=== PATIENT | male | born 1995 | race Caucasian/White ===

== ENCOUNTER 2019-01-04 14:16 | Day surgery (SDC) | payer BC ==
--- NOTE | 2019-01-04 13:39 | PCM.PREANE ---
PreAnesthesia Questionnaire - CURRENT (IN HOUSE) MEDS Current Meds: Current Medications Discontinued Medications Fentanyl (Sublimaze) Confirm Administered Dose 100 mcg .ROUTE .STK-MED ONE Stop: 01/04/19 13:19 Midazolam HCl (Versed 1 Mg/Ml) Confirm Administered Dose 2 mg .ROUTE .STK-MED ONE Stop: 01/04/19 13:19 Propofol (Diprivan 20 Ml) Confirm Administered Dose 200 mg .ROUTE .STK-MED ONE Stop: 01/04/19 13:18 Rocuronium Halsey (Zemuron) Confirm Administered Dose 50 mg .ROUTE .STK-MED ONE Stop: 01/04/19 13:19 Succinylcholine Chloride (Succinylcholine In Ns Pf) Confirm Administered Dose 100 mg .ROUTE .STK-MED ONE Stop: 01/04/19 13:23
[~2019-01-04 14:16] MED LIST: Dexamethasone 4 MG/ML 5 ML MDV ONE; Ketorolac 30 MG/ML SDV ONE; Lactated Ringers 1,000 ML IV SCH; Lidocaine 1%/Sod Bicarbonate in NS 8.4% 1 ML Syringe IDERM PRN; Midazolam 1 MG/ML 2 ML SDV ONE; Propofol 200 MG/20 ML SDV ONE; Rocuronium 50 MG/5 ML Vial ONE; Sodium Chloride 0.9% 10 ML Syringe FLUSH PRN; Succinylcholine/Normal Saline 100 MG/5 ML Syringe ONE; cefOXitin 2 GM in Premix Bag 1 BAG IV SCH; fentaNYL 100 MCG/2 ML SDV ONE
--- NOTE | 2019-01-04 14:39 | PCM.PREANE ---
Preanesthetic Assessment - Anesthesia/Transfusion/Family Hx Anesthesia History: No Prior Anesthesia Type of Anesthesia Reaction: Unknown Family History of Anesthesia Reaction: No Transfusion History: No Prior Transfusion(s) Intubation History: Unknown - Review of Systems General: No Symptoms Pulmonary: No Symptoms Cardiovascular: No Symptoms Gastrointestinal: Abdominal Pain Neurological: No Symptoms Other: Reports: None - Physical Assessment NPO Status Date: 01/04/19 (clay & shay) NPO Status Time: 09:00 Pulse: 88 O2 Sat by Pulse Oximetry: 98 Respiratory Rate: 16 Blood Pressure: 136/77 Temperature: 98.6 C ASA Class: 2E Mental Status: Alert & Oriented x3 Airway Class: Mallampati = 3 Dentition: Reports: Normal Dentition Cardiovascular: Regular Rate - Allergies Allergies/Adverse Reactions: Allergies Allergy/AdvReac Type Severity Reaction Status Date / Time No Known Allergies Allergy Verified 01/04/19 13:54 - Anesthesia Plan Pre-Op Medication Ordered: None - Acknowledgements Anesthesia Type Planned: General Anesthesia Pt an Appropriate Candidate for the Planned Anesthesia: Yes Alternatives and Risks of Anesthesia Discussed w Pt/Guardian: Yes Pt/Guardian Understands and Agrees with Anesthesia Plan: Yes PreAnesthesia Questionnaire - CURRENT (IN HOUSE) MEDS Current Meds: Current Medications Cefoxitin Sodium 2 gm/ Premix 50 mls @ 100 mls/hr IV ONETIME [facility] Lactated Ringer's (Ringers, Lactated) 1,000 mls @ 125 mls/hr IV ASDIRECTED [facility]RIT Lidocaine/Sodium Bicarbonate (Buffered Lidocaine 1% In Ns 8.4%) 0.25 ml IDERM ONETIME PRN PRN Reason: Prior to IV Start Sodium Chloride (Saline Flush) 10 ml FLUSH ASDIRECTED PRN PRN Reason: Keep Vein Open Discontinued Medications Dexamethasone (Dexamethasone) Confirm Administered Dose 20 mg .ROUTE .STK-MED ONE Stop: 01/04/19 13:38 Fentanyl (Sublimaze) Confirm Administered Dose 100 mcg .ROUTE .STK-MED ONE Stop: 01/04/19 13:19 Ketorolac Tromethamine (Toradol) Confirm Administered Dose 30 mg .ROUTE .STK- MED ONE Stop: 01/04/19 13:38 Midazolam HCl (Versed 1 Mg/Ml) Confirm Administered Dose 2 mg .ROUTE .STK-MED ONE Stop: 01/04/19 13:19 Propofol (Diprivan 20 Ml) Confirm Administered Dose 200 mg .ROUTE .STK-MED ONE Stop: 01/04/19 13:18 Rocuronium Logan (Zemuron) Confirm Administered Dose 50 mg .ROUTE .STK-MED ONE Stop: 01/04/19 13:19 Succinylcholine Chloride (Succinylcholine In Ns Pf) Confirm Administered Dose 100 mg .ROUTE .STK-MED ONE Stop: 01/04/19 13:23
[2019-01-04] MEDS ORDERED: fentaNYL 100 MCG/2 ML SDV ONE (14:57)
[2019-01-04] MEDS ORDERED: Neostigmine Methylsulfate 1 MG/ML 5 ML Syringe ONE (15:15)
[2019-01-04] MEDS ORDERED: Ondansetron 4 MG/2 ML SDV ONE (15:16)
[2019-01-04] MEDS ORDERED: Lactated Ringers 1,000 ML ONE (15:21)
[2019-01-04] MEDS ORDERED: Lidocaine 1% with EPINEPHrine 1:100,000 20 ML MDV ONE (15:27)
[2019-01-04] MEDS ORDERED: fentaNYL 100 MCG/2 ML SDV IVPUSH PRN (15:51)
[2019-01-04] MEDS ORDERED: Ondansetron 4 MG/2 ML SDV IVPUSH PRN (15:51)
[2019-01-04] MEDS ORDERED: HYDROmorphone 0.5 MG/0.5 ML Syringe IVPUSH PRN (15:51)
--- NOTE | 2019-01-04 15:51 | PCM.POSTAN ---
POST ANESTHESIA ASSESSMENT - VITAL SIGNS Pulse Rate: 87 SaO2: 99 Resp Rate: 16 Blood Pressure: 154/87 Temperature: 98.7 C - RESPIRATORY Respiratory Status: Respiratory Rate WNL, Airway Patent, O2 Saturation Stable, Supplemental Oxygen - CARDIOVASCULAR CV Status: Pulse Rate WNL, Blood Pressure Stable - GASTROINTESTINAL GI Status: No Symptoms - POST OP HYDRATION Hydration Status: Adequate & Stable
--- NOTE | 2019-01-04 15:59 | OR ---
DATE OF OPERATION: 01/04/2019 SURGEON: Jose Maria Bright MD PREOPERATIVE DIAGNOSIS: Acute appendicitis. POSTOPERATIVE DIAGNOSIS: Acute appendicitis. OPERATION PERFORMED: Laparoscopic appendectomy. ANESTHESIA: General. ESTIMATED BLOOD LOSS: Minimal. SPECIMEN: Appendix. OPERATIVE FINDINGS: Normal appendix. No other intraabdominal abnormalities noted. INDICATION FOR PROCEDURE: This 23-year-old male has abdominal pain; however, it is mostly located on the left side of the periumbilical area. He has a normal white blood cell count, however has a CT scan that shows a dilated appendix at 9 mm consistent with appendicitis. No other intraabdominal abnormalities were noted on scan. DESCRIPTION OF PROCEDURE: After adequate preparation, an infraumbilical incision was made and a Veress needle placed intra-abdominally. The abdomen was insufflated and then a laparoscope inserted. Two other midline trocars were placed under direct vision. Examination of the abdomen showed this to be virgin. There were no intraabdominal adhesions. No evidence of infection. The appendix was isolated next to the cecum and appeared to be normal. The only abnormality was it had an excessive length to it. Exploration of the abdomen, otherwise, was negative. He had no bowel thickening. No evidence of colon diverticula, Crohn disease, or hernias. A cautery was used to transect the mesoappendix and cauterize the appendiceal vessel. A large clip school bus attendant was used to clip across the base of the appendix and then this was amputated with scissors. The appendix was placed in a sterile retrieval bag and brought out through the suprapubic trocar site. The abdomen was desufflated and the skin closed with Monocryl. MMODAL /[id number]
[2019-01-04] MEDS ORDERED: Lactated Ringers 1,000 ML IV SCH (16:00)
--- NOTE | 2019-01-04 16:14 | PCM48HPAN ---
Post Anesthesia Note - EVALUATION WITHIN 48HRS OF ANESTHETIC Vital Signs in Normal Range: Yes Patient Participated in Evaluation: Yes Respiratory Function Stable: Yes Airway Patent: Yes Cardiovascular Function Stable: Yes Hydration Status Stable: Yes Pain Control Satisfactory: Yes Nausea and Vomiting Control Satisfactory: Yes Mental Status Recovered: Yes (feels better) Pulse Rate: 87 Resp Rate: 16 Temperature: 209.7 F Blood Pressure: 154/87
== END 2019-01-04 18:03 | disposition home or self-care (01) ==
LOC: JD.SDS 14:16
PROVIDERS: ATTEND Surgery
DX: K35.80 Unspecified acute appendicitis (principal); Z87.891 Personal history of nicotine dependence
CPT/HCPCS: 44970; J0330; J0694; J1100; J1885; J2250; J2405; J2704; J2710; J3010; J7120; 00840

== ENCOUNTER 2024-04-30 21:07 | Emergency (ER) | payer OTHER ==
[2024-04-30] MEDS ORDERED: Sodium Chloride 0.9% 10 ML Syringe FLUSH PRN (21:42)
[2024-04-30] MEDS: Acetaminophen/HYDROcodone 325-5 MG Tab PO ONE (22:47)
== END 2024-04-30 23:36 | disposition home or self-care (01) ==
LOC: JD.ED 21:07
DX: S42.002A Fracture of unspecified part of left clavicle, initial encounter for closed fracture (principal); V29.99XA Rider (driver) (passenger) of other motorcycle injured in unspecified traffic accident, initial encounter
CPT/HCPCS: 73030; 99283; A9270

== ENCOUNTER 2024-05-05 06:20 | Day surgery (SDC) | payer OTHER ==
[~2024-05-05 06:20] MED LIST changes: -Dexamethasone 4 MG/ML 5 ML MDV ONE; -Ketorolac 30 MG/ML SDV ONE; -Lactated Ringers 1,000 ML IV SCH; -Lidocaine 1%/Sod Bicarbonate in NS 8.4% 1 ML Syringe IDERM PRN; -Midazolam 1 MG/ML 2 ML SDV ONE; -Propofol 200 MG/20 ML SDV ONE; -Rocuronium 50 MG/5 ML Vial ONE; +Sodium Chloride 0.9% 10 ML Syringe FLUSH SCH; -Succinylcholine/Normal Saline 100 MG/5 ML Syringe ONE; -cefOXitin 2 GM in Premix Bag 1 BAG IV SCH; -fentaNYL 100 MCG/2 ML SDV ONE
[2024-05-05] MEDS: Lactated Ringers 1,000 ML IV SCH (06:40)
[2024-05-05] MEDS ORDERED: Midazolam 1 MG/ML 2 ML SDV ONE (06:47)
[2024-05-05] MEDS ORDERED: Ropivacaine 0.5% 5 MG/ML 30 ML SDV ONE (06:47)
[2024-05-05] MEDS ORDERED: HYDROmorphone 0.5 MG/0.5 ML Syringe IVPUSH PRN (07:48)
[2024-05-05] MEDS ORDERED: Ondansetron 4 MG/2 ML SDV IVPUSH PRN (07:48)
[2024-05-05] MEDS ORDERED: fentaNYL 100 MCG/2 ML SDV IVPUSH PRN (07:48)
[2024-05-05] MEDS ORDERED: Propofol 200 MG/20 ML SDV ONE (08:01)
[2024-05-05] MEDS ORDERED: Rocuronium 50 MG/5 ML Vial ONE (08:01)
[2024-05-05] MEDS ORDERED: fentaNYL 100 MCG/2 ML SDV ONE ×2 (08:01→09:16)
[2024-05-05] MEDS ORDERED: ceFAZolin 2 GM Vial ONE (08:08)
[2024-05-05] MEDS ORDERED: Sodium Chloride 0.9% 100 ML ONE (08:08)
[2024-05-05] MEDS ORDERED: Dexamethasone 4 MG/ML 5 ML MDV ONE (08:08)
[2024-05-05] MEDS ORDERED: Lidocaine 2% 5 ML SDV ONE (08:08)
[2024-05-05] MEDS ORDERED: dexmedeTOMIDine HCl 200 MCG/2 ML SDV ONE (08:08)
[2024-05-05] MEDS ORDERED: Sugammadex Sodium 200 MG/2 ML VIAL IV ONE (09:14)
[2024-05-05] MEDS: Acetaminophen/HYDROcodone 325-5 MG Tab PO SCH (11:29)
== END 2024-05-05 11:40 ==
LOC: JD.SDS 06:20
PROVIDERS: ATTEND Orthopaedic Surgery
DX: S42.002A Fracture of unspecified part of left clavicle, initial encounter for closed fracture (principal); Z87.891 Personal history of nicotine dependence; Z79.899 Other long term (current) drug therapy; W01.0XXA Fall on same level from slipping, tripping and stumbling without subsequent striking against object, initial encounter
CPT/HCPCS: 23515; 76000; A9270; C1713; J0690; J1100; J2250; J2704; J2795; J3010; J3490; J7120; 00450